=== PATIENT | female | born 1965 | race African-American/Black ===

== ENCOUNTER 2018-04-09 10:00 | Emergency (ER) | payer BC ==
[~2018-04-09] VITALS: Ht 160 cm; Wt 65.0 kg
[~2018-04-09 10:00] MED LIST: ACET-2178 PO; BACL-141 PO
[2018-04-09] MEDS ORDERED: HYDROCODONE/ACETAMINOPHEN 5/325MG TABLET PO STA (12:42)
[2018-04-09] MEDS ORDERED: SODIUM CHLORIDE 0.9% 1,000 ML IV ONE (12:42)
[2018-04-09 14:52] LABS: EOSINOPHILS % 1.7 % (0.0-5.0); HEMATOCRIT. 35.1 % (36.0-48.0); HEMOGLOBIN. 11.6 g/dL (12.0-16.0); LYMPHOCYTES % 40.5 % (20.0-50.0); MEAN CORPUSCULAR HEMOGLOBIN 30.4 pg (28.0-32.0); MEAN CORPUSCULAR VOLUME 91.6 fL (81.0-99.0); MEAN PLATELET VOLUME 10.4 fl (7.4-10.4); MONOCYTES % 7.1 % (2.0-8.0); NEUTROPHILS % 49.7 % (40.0-76.0); PLATELET 212 x1000/uL (130-400); RED BLOOD CELL COUNT 3.83 mill/uL (4.2-5.4); RED CELL DISTRIBUTION WIDTH 13.7 % (11.6-14.6)
[2018-04-09 14:56] LABS: CHLORIDE 109 mEq/L (98-107)
[2018-04-09 14:57] LABS: PROTHROMBIN TIME 9.9 sec (9.1-11.1)
[2018-04-09 16:59] LABS: CLARITY URINE CLOUDY (CLEAR); COLOR URINE YELLOW (YELLOW); KETONES URINE NEGATIVE (NEGATIVE); LEUKOCYTE ESTERASE URINE 2+ (NEGATIVE); NITRITE URINE NEGATIVE (NEGATIVE); OCCULT BLOOD URINE TRACE (NEGATIVE); PH URINE 5.5 (4.5-8.0); PROTEIN URINE 1+ (NEGATIVE); SPECIFIC GRAVITY URINE 1.007 (1.005-1.030); UROBILINOGEN URINE 0.2 E.U./dL (0.2-1.0)
[2018-04-09] MEDS ORDERED: IOHEXOL-350 100 ML BOTTLE ONE (17:44)
[2018-04-09] MEDS ORDERED: IBUPROFEN 600MG TABLET PO ONE (18:15)
[2018-04-09 18:22] VITALS: BP 128/90
== END 2018-04-09 18:37 | disposition home or self-care (01) ==
LOC: ER 11:00
DX: H57.11 Ocular pain, right eye (principal); F41.9 Anxiety disorder, unspecified; F32.9 Major depressive disorder, single episode, unspecified; M32.9 Systemic lupus erythematosus, unspecified; R51 Headache; I10 Essential (primary) hypertension; F12.10 Cannabis abuse, uncomplicated; Z88.0 Allergy status to penicillin; Z79.899 Other long term (current) drug therapy
CPT/HCPCS: 36415; 70496; 80053; 81003; 85025; 85610; 87077; 87086; 87186; 99285; J7030; Q9967; Z7610